=== PATIENT | female | born 1935 | race Native Hawaiian/Other Pacific Islander ===

== ENCOUNTER 2020-01-14 12:58 | Outpatient (CLI) | payer OTHER ==
[2020-01-14 13:19] LABS: PLATELET COUNT 371 K/uL (152-353)
[2020-01-14 14:42] LABS: POTASSIUM 3.2 mmol/L (3.6-5.2)
== END 2020-01-14 19:30 | disposition home or self-care (01) ==
LOC: LABW 12:58
PROVIDERS: Internal Medicine
DX: N18.3 Chronic kidney disease, stage 3 (moderate) (principal); M06.80 Other specified rheumatoid arthritis, unspecified site
CPT/HCPCS: 36415; 80053; 81000; 82306; 82330; 82570; 83735; 83970; 84100; 84155; 84550; 85027

== ENCOUNTER 2020-06-30 13:29 | Outpatient (CLI) | payer OTHER ==
[2020-06-30 14:07] LABS: PLATELET COUNT 350 K/uL (152-353)
[2020-06-30 14:08] LABS: POTASSIUM 3.8 mmol/L (3.6-5.2)
== END 2020-06-30 20:59 | disposition home or self-care (01) ==
LOC: LABW 13:29
PROVIDERS: Nurse Practitioner
DX: N18.3 Chronic kidney disease, stage 3 (moderate) (principal); E87.1 Hypo-osmolality and hyponatremia
CPT/HCPCS: 36415; 80053; 81000; 82306; 82330; 82570; 83735; 83935; 83970; 84100; 84155; 84300; 85027

== ENCOUNTER 2021-06-08 10:45 | Outpatient (CLI) | payer OTHER ==
[2021-06-08 11:13] LABS: PLATELET COUNT 261 K/uL (152-353)
[2021-06-08 11:38] LABS: POTASSIUM 3.9 mmol/L (3.6-5.2)
== END 2021-06-08 21:35 | disposition home or self-care (01) ==
LOC: LABW 10:45
PROVIDERS: ATTEND Internal Medicine
DX: N18.32 Chronic kidney disease, stage 3b (principal); E87.1 Hypo-osmolality and hyponatremia; R82.998 Other abnormal findings in urine
CPT/HCPCS: 36415; 80053; 81000; 82306; 82330; 82570; 83735; 83935; 83970; 84100; 84155; 84300; 85027; 87086; 87088